=== PATIENT | female | born 1950 | race Caucasian/White ===

== ENCOUNTER 2018-02-24 09:18 | Outpatient (CLI) | payer MEDICARE ==
--- NOTE | 2018-02-24 10:17 | BD ---
BONE DENSITOMETRY USING DEXA: Date: 02/24/18 HISTORY: Postmenopausal screening for osteoporosis. FINDINGS: Lumbar Spine: BMD (g/cm2) L1 0.886 T-Score: -0.9 Z-Score: 0.7 L2 0.851 T-Score: -1.6 Z-Score: 0.2 L3 0.894 T-Score: -1.7 Z-Score: 0.1 L4 0.881 T-Score: -1.6 Z-Score: 0.3 L1-L4 0.877 T-Score: -1.5 Z-Score: 0.3 Femoral Neck: 0.631 T-Score: -2.0 Z-Score: -0.4 Total Femur: 0.730 T-Score: -1.7 Z-Score: -0.5 The 10 year fracture risk for a major osteoporotic fracture is 11% and for a hip fracture is 1.5%. IMPRESSION: Osteopenia. POS: [facility]
== END 2018-02-24 09:19 | disposition home or self-care (01) ==
LOC: BICMAMMO 09:18
PROVIDERS: ATTEND Internal Medicine Geriatric Medicine
DX: Z13.820 Encounter for screening for osteoporosis (principal); Z00.00 Encounter for general adult medical examination without abnormal findings; M85.89 Other specified disorders of bone density and structure, multiple sites
CPT/HCPCS: 77063; 77067; 77080

== ENCOUNTER 2020-07-04 14:41 | Emergency (ER) | payer MEDICARE ==
[2020-07-04 15:34] LABS: #Lymphocytes 1.5 thou/uL (1.20-3.40); #Monocytes 0.5 thou/uL (0.11-0.59); #Neutrophils 2.7 thou/uL (1.40-6.50); %Basophils 0.8 % (0.0-1.0); %Eosinophils 0.6 % (0.0-10.0); %Lymphocytes 31.2 % (21.0-51.0); %Monocytes 11.1 % (0.0-10.0); %Neutrophils 56.3 % (42.0-75.0); Hemoglobin 13.1 g/dL (12.0-16.0); Mean Corpuscular HGB CONC 32.5 g/dL (32.0-36.0); Mean Corpuscular Hemoglobin 29.5 pg (27.0-31.0); Mean Corpuscular Volume 90.8 fL (78.0-98.0); Mean Platelet Volume 6.9 fL (7.4-10.4); Platelet Count 215 thou/uL (130-400); RBC Distribution Width 12.9 % (11.5-14.5); Red Blood Cell (RBC) Count 4.44 mill/uL (4.20-5.40); White Blood Cell (WBC) Count 4.8 thou/uL (4.8-10.8)
[2020-07-04 15:49] LABS: ALT (SGPT) 14 U/L (8-55); AST (SGOT) 21 U/L (5-34); Albumin 3.8 g/dL (3.4-4.8); Alkaline Phosphatase 81 U/L (40-110); Anion Gap 13 mmol/L (10-20); BUN (Urea Nitrogen) 14 mg/dL (9.8-20.1); Bilirubin, Total 0.2 mg/dL (0.2-1.2); Calc. Creatinine Clearance 0 mL/min (70-130); Calcium 8.7 mg/dL (7.8-10.44); Carbon Dioxide 24 mmol/L (23-31); Chloride 104 mmol/L (98-107); Globulin 3.1 g/dL (2.4-3.5); Glucose 141 mg/dL (80-115); Lipase 39 U/L (8-78); Potassium 3.6 mmol/L (3.5-5.1); Protein, Total 6.9 g/dL (5.8-8.1); Sodium 137 mmol/L (136-145)
== END 2020-07-04 16:51 | disposition home or self-care (01) ==
LOC: ERS 14:41
DX: R50.9 Fever, unspecified (principal); R05 Cough; R10.13 Epigastric pain; Z20.822 Contact with and (suspected) exposure to COVID-19
CPT/HCPCS: 71045; 80053; 83690; 84484; 85025; 93005

== ENCOUNTER 2020-07-17 11:00 | Observation (INO) | payer MEDICARE ==
--- NOTE | 2020-07-17 11:35 | CT ---
EXAM: CT brain without contrast HISTORY: Headache and difficulty finding words COMPARISON: 04/18/2010 TECHNIQUE: Multiple contiguous axial images were obtained and a CT of the brain without contrast. FINDINGS: There are subtle scattered hypodensities in the subcortical and periventricular white matte r consistent with small vessel ischemic disease. There is no evidence of hydrocephalus, intracranial hemorrhage, or extra-axial fluid collection. The calvarium and overlying soft tissues are unremarkable. The visualized paranasal sinuses and masto id air cells are well aerated. IMPRESSION: No evidence of acute intracranial abnormality Dr. Galvez notified of findings at 11:32 AM on 07/17/2020
[2020-07-17 11:39] LABS: #Eosinphils 0.1 thou/uL (0.0-0.7); #Lymphocytes 2.4 thou/uL (1.20-3.40); #Monocytes 0.6 thou/uL (0.11-0.59); #Neutrophils 4.2 thou/uL (1.40-6.50); %Basophils 0.6 % (0.0-1.0); %Eosinophils 1.9 % (0.0-10.0); %Lymphocytes 32.4 % (21.0-51.0); %Neutrophils 57.1 % (42.0-75.0); Hemoglobin 12.7 g/dL (12.0-16.0); Mean Corpuscular HGB CONC 31.9 g/dL (32.0-36.0); Mean Corpuscular Hemoglobin 29.6 pg (27.0-31.0); Mean Corpuscular Volume 92.6 fL (78.0-98.0); Mean Platelet Volume 6.9 fL (7.4-10.4); Platelet Count 322 thou/uL (130-400); RBC Distribution Width 12.8 % (11.5-14.5); Red Blood Cell (RBC) Count 4.31 mill/uL (4.20-5.40); White Blood Cell (WBC) Count 7.3 thou/uL (4.8-10.8)
[2020-07-17 11:58] LABS: ALT (SGPT) 23 U/L (8-55); AST (SGOT) 24 U/L (5-34); Albumin 4.1 g/dL (3.4-4.8); Alkaline Phosphatase 94 U/L (40-110); Anion Gap 14 mmol/L (10-20); BUN (Urea Nitrogen) 17 mg/dL (9.8-20.1); Bilirubin, Total 0.3 mg/dL (0.2-1.2); Calc. Creatinine Clearance 0 mL/min (70-130); Calcium 9.4 mg/dL (7.8-10.44); Carbon Dioxide 27 mmol/L (23-31); Chloride 106 mmol/L (98-107); Globulin 3.2 g/dL (2.4-3.5); Glucose 102 mg/dL (80-115); Potassium 3.8 mmol/L (3.5-5.1); Protein, Total 7.3 g/dL (5.8-8.1); Sodium 143 mmol/L (136-145)
[2020-07-17 12:12] LABS: INR-International Normal Ratio 0.9; PTT 29.2 sec (22.9-36.1); Prothrombin Time 12.7 sec (12.0-14.7)
[2020-07-17] MEDS ORDERED: Aspirin Chewable 81 MG TAB ONE (12:18)
--- NOTE | 2020-07-17 12:56 | PDOC.FPRHP ---
- History of Present Illness Chief Complaint: Speech difficulty History of Present Illness: 69yo F presented to the ED for concern of stroke like symptoms. Pt stated that she woke up in her normal condition with no symptoms. Around 08 she started to notice blurring in her vision that made her unable to read the TV or her phone. She states she noticed she could read single words but could not understand what they meant. She then developed a mild dull frontal headache. Following this she developed difficulty speaking. She noted that she could not say the words she meant to say "the words just would not come out". was there and witnessed and stated that she was not slurred but could not complete her [place] and words did not necessarily make sense. She states that all of this resolved around 103. Her headache had mostly resolved aside from a heaviness feeling in her head. Denies any similar episodes in the past. Of note around Jun 27 pt had a few days of flu like sx with loss of smell and was concerned for COVID but was never tested. She states those symptoms have since resolved. Denies any history of elevated cholesterol, abnormal heart rhythm, smoking. Has been told her has high blood pressure at clinic but is always normal at home. - Allergies/Adverse Reactions Allergies Allergy/AdvReac Type Severity Reaction Status Date / Time No Known Allergies Allergy Unverified 07/17/20 14:40 - Home Medications Medication Instructions Recorded Confirmed Type Albuterol Sulfate [Proventil Hfa] 2 puff INH Q6H PRN 07/17/20 07/17/20 History Ascorbic Acid [Vitamin C] 1 tab PO TID 07/17/20 07/17/20 History Magnesium Citrate 400 mg PO DAILY 07/17/20 07/17/20 History [place]-3 Fatty Acids/Fish Oil 1 capsule PO DAILY 07/17/20 07/17/20 History [[place] 3 Fish Oil Softgel] Pot Bicarb/Sod Bicarb/Cit Ac 1 tab PO PRN PRN 07/17/20 07/17/20 History [Cheryl-Albert Gold Tab Eff] Vitamin D3/Vitamin K2 (Mk4) [K2 5,000 units PO DAILY 07/17/20 07/17/20 History Plus D3 Tablet] - History PMHx: Asthma, Sliding hiatal hernia, Esophageal spasms, GERD PSHx: Left cataract removal FHx: Father of [place] at 78; [place] of CHF, afib 92; CVA in paternal grandmother Social: Denies smoking or drugs. Rare glass of red wine - Vital signs BP: 197/97, Pulse: 85, Resp: 17, Temp: 98.5 (Oral), Pain: 0, O2 sat: 98 on (Room Air), Time: 07/17/2020 11:01. BP: 204/88, MAP: 126, Pulse: 84, Resp: 18, Pain: 0, O2 sat: 98 on (Room Air), Time: 07/17/2020 11:15. BP: 177/91, Pulse: 79, Resp: 18, Pain: 0, O2 sat: 100 on (Room Air), Time: 07/17/2020 11:52. 70 kg - Physical Exam Constitutional: NAD, awake, alert and oriented, well developed HEENT: PERRLA, EOMI, grossly normal vision, grossly normal hearing, MMM -HEENT: Mildly cryptic tongue Neck: supple, FROM, no bruits Heart: RRR, normal S1/S2, no murmurs/rubs/gallops Lungs: CTAB, no respiratory distress, good air movement Abdomen: soft, non-tender, bowel sounds present Musculoskeletal: normal structure, normal tone, ROM grossly normal Neurological: no focal deficit, CN II-XII intact, normal sensation, DTRs 2+ -Neurological: Full neurologic exam normal with no appreciable deficits Skin: no rash/lesions, capillary refill <2 seconds Heme/Lymphatic: no unusual bruising or bleeding, no purpura, no petechia Psychiatric: normal mood and affect, good judgment and insight, intact recent and remote memory FMR H&P: Results - Labs Result Diagrams: 07/18/20 05:21 07/18/20 05:21 Lab results: WBC 7.3 thou/uL (4.8-10.8) 07/17/20 11:08 Hgb 12.7 g/dL (12.0-16.0) 07/17/20 11:08 Hct 39.9 % (36.0-47.0) 07/17/20 11:08 MCV 92.6 fL (78.0-98.0) 07/17/20 11:08 Plt Count 322 thou/uL (130-400) 07/17/20 11:08 Neutrophils % 57.1 % (42.0-75.0) 07/17/20 11:08 Sodium 143 mmol/L (136-145) 07/17/20 11:08 Potassium 3.8 mmol/L (3.5-5.1) 07/17/20 11:08 Chloride 106 mmol/L (98-107) 07/17/20 11:08 Carbon Dioxide 27 mmol/L (23-31) 07/17/20 11:08 BUN 17 mg/dL (9.8-20.1) 07/17/20 11:08 Creatinine 0.82 mg/dL (0.6-1.1) 07/17/20 11:08 Glucose 102 mg/dL (80-115) 07/17/20 11:08 Calcium 9.4 mg/dL (7.8-10.44) 07/17/20 11:08 Total Bilirubin 0.3 mg/dL (0.2-1.2) 07/17/20 11:08 AST 24 U/L (5-34) 07/17/20 11:08 ALT 23 U/L (8-55) 07/17/20 11:08 Alkaline Phosphatase 94 U/L (40-110) 07/17/20 11:08 Serum Total Protein 7.3 g/dL (5.8-8.1) 07/17/20 11:08 Albumin 4.1 g/dL (3.4-4.8) 07/17/20 11:08 - EKG Interpretation EKG: NSR, no evidence for ischemia FMR H&P: A/P - Plan TIA/CVA r/o - Based on History and lack of findings, c/w TIA - Risk stratifying labs - Brain MRI - ECHO - CTA head/neck - NIH scores, Neurochecks - Permissive HTN - Start DAPT HTN - White coat HTN per patient - Continue to monitor Asthma, mild intermittent - Albuterol inhaler PRN Sliding Hiatal Hernia - Aware Esophageal spasms - aware Diet: HH Code: Full GI ppx: none PCP: none, CC Dispo: Admit Stroke Observation, eLOS likely < [address] Aguilar attending and Dr. Oconnell. FMR H&P: Upper Level - Pertinent history S: 69yo previously healthy female with approximately 2 hour history of expressive aphasia, vision changes, and headache. This occurred this morning and resolved by time of arrival. Pt's only risk factors include age, questionable hx of HTN. Pt does not follow with regular PCP and follows functional medicine regimen therefore is unsure of other risk factors. She takes not daily medications and is routinely active. She has never had symptoms like this before. - Pertinent findings O: GEN: NAD, well developed HEENT: PERRLA, EOMI, cryptic red tongue HEART: RRR, no murmur LUNGS: CTAB ABD: Soft, non tender EXT: FROM, no cyanosis or edema NEURO: CN 2-12 intact, normal extremity strength and sensation, A&Ox3, normal cognition and memory SKIN: No rash, lesions A/P: Likely TIA vs CVA - CT non con: negative - Ordered CTA head and neck, Echo - Risk strat labs: A1c, lipids - NIH scales w/ neuro checks - DAPT due to ABCD2 of 5 - Permissive HTN x48hr Dispo: Admit to inpt stroke - Plan Date/Time: 07/17/20 1255 ISean DO, have evaluated this patient and agree with findings/plan as outlined by internal communications manager resident. Pertinent changes/additions are listed here. Addendum - Attending - Attending Attestation Date/Time: 07/18/20 1155 I personally evaluated the patient and discussed the management with Dr. Bedolla/Kourtney. I agree with the History, Examination, Assessment and Plan documented above with any addition or exceptions noted below. seen and evaluated on date of admission.
[2020-07-17] MEDS ORDERED: Clopidogrel Bisulfate 300 MG TAB PO SCH ×2 (13:45→19:15)
[2020-07-17] MEDS ORDERED: Iopamidol-370 76% 500 ML 1 ML ONE (13:54)
[2020-07-17] MEDS ORDERED: hydrALAZINE 20 MG/ML VIAL SLOW IVP PRN (14:15)
[2020-07-17] MEDS ORDERED: Senokot S 8.6-50 MG TAB PO PRN (15:38)
[2020-07-17] MEDS ORDERED: Acetaminophen 325 MG TAB PO PRN (15:38)
[2020-07-17] MEDS ORDERED: Famotidine 20 MG TAB PO PRN (15:38)
[2020-07-17] MEDS ORDERED: Ondansetron ODT 4 MG TAB PO PRN (15:38)
[2020-07-17] MEDS ORDERED: Calcium Carbonate 500 MG ChewTAB PO PRN (15:38)
[2020-07-17] MEDS ORDERED: Bisacodyl 5 MG TAB PO PRN (15:38)
[2020-07-17] MEDS ORDERED: Bisacodyl 10 MG SUPP PR PRN (15:38)
[2020-07-17 15:57] VITALS: BMI 24.0
[2020-07-17] MEDS ORDERED: Albuterol 200 PUFF (6.7GM INHALER) INH PRN (17:59)
--- NOTE | 2020-07-17 18:14 | CT ---
CTA of the head with IV contrast and 3-D reformatted imaging. CTA of the neck with IV contrast and 3-D reformatted imaging. INDICATION: TIA; trouble finding words with headache and heaviness in the head COMPARISON: CT the brain without contrast dated every 2020 at 11:22 AM FINDINGS: CTA OF THE HEAD WITH CONTRAST: CTA OF THE BRAIN: Right ICA: Patent. Right MCA: Patent. Right JUAN: Patent. ACOM: Patent. Left ICA: Patent. Left MCA: Patent. Left JUAN: Patent. PCOMs: Patent. Vertebral arteries: Patent. Basilar Artery: Patent. operations welder: Patent. Incidentals: Left [place] lenses been replaced. There is a mucous retention cyst within the inferior aspect of the left maxillary sinus. No suspicious intracranial enhancement is evident. CTA OF THE NECK WITH CONTRAST: Right CCA: Patent. Right ICA: Patent. Right Subclavian: Patent. Right Vertebral Artery: Patent. Left CCA: Patent. Left ICA: Patent. Left Subclavian: Patent. Left Vertebral Artery: Patent. Aerodigestive tract: Clear. Parotids/Submandibular/Thyroid glands: Normal. Lymph nodes: No pathologically enlarged lymph nodes. Lung Apices: There are scattered areas of tree-in-bud nodular opacity within both upper lobes. Bones: There is scattered degenerative and osteoarthritic change present. Incidentals: None. IMPRESSION: 1. No hemodynamically significant stenosis, occlusion or aneurysmal formation. 2. Tree-in-bud type nodular opacities within both upper lobes can be seen with a respiratory bronchio litis. Recommend correlation with the clinical exam. Follow-up CT the thorax without contrast in 6-8 weeks to document stability versus resolution is recommended.
[2020-07-18 05:30] LABS: #Basophils 0.1 thou/uL (0.0-0.2); #Eosinphils 0.2 thou/uL (0.0-0.7); #Lymphocytes 2.2 thou/uL (1.20-3.40); #Monocytes 0.6 thou/uL (0.11-0.59); #Neutrophils 3.5 thou/uL (1.40-6.50); %Basophils 1.1 % (0.0-1.0); %Eosinophils 2.8 % (0.0-10.0); %Monocytes 9.7 % (0.0-10.0); %Neutrophils 52.5 % (42.0-75.0); Hemoglobin 12.4 g/dL (12.0-16.0); Mean Corpuscular HGB CONC 32.4 g/dL (32.0-36.0); Mean Corpuscular Hemoglobin 29.3 pg (27.0-31.0); Mean Corpuscular Volume 90.5 fL (78.0-98.0); Mean Platelet Volume 6.5 fL (7.4-10.4); Platelet Count 284 thou/uL (130-400); RBC Distribution Width 12.9 % (11.5-14.5); Red Blood Cell (RBC) Count 4.24 mill/uL (4.20-5.40); White Blood Cell (WBC) Count 6.6 thou/uL (4.8-10.8)
[2020-07-18 05:54] LABS: Anion Gap 11 mmol/L (10-20); BUN (Urea Nitrogen) 14 mg/dL (9.8-20.1); Calc. Creatinine Clearance 75 mL/min (70-130); Calcium 8.9 mg/dL (7.8-10.44); Carbon Dioxide 27 mmol/L (23-31); Cardiac Risk 3.4 (Less than 4.5); Chloride 109 mmol/L (98-107); Cholesterol 228 mg/dl (< 200 Desired); Glucose 88 mg/dL (80-115); HDL Cholesterol 67 mg/dL (>60 Neg Risk); LDL Cholesterol, Calculated 148 mg/dL; Magnesium 2.2 mg/dL (1.6-2.6); Potassium 4.1 mmol/L (3.5-5.1); Sodium 143 mmol/L (136-145); Triglycerides 64 mg/dL (Less than 150)
[2020-07-18 05:57] LABS: Hemoglobin A1c 5.6 % (4.0-6.0)
[2020-07-18 06:19] LABS: Thyroid Stimulating Hormone 1.9782 uIU/mL (0.35-4.94)
--- NOTE | 2020-07-18 06:47 | PDOC.FM ---
- Subjective Subjective: No acute events overnight. Notes a continued mild frontal headache. No recurrence of word finding difficulties or vision changes. - Objective Vital Signs & Weight: Vital Signs (12 hours) Temp Pulse Resp BP Pulse Ox 07/18/20 04:00 97.8 F 73 20 130/60 96 07/18/20 00:00 98.1 F 75 16 136/64 95 07/17/20 20:14 97.8 F 73 17 172/75 H 97 Weight Weight 69.626 kg I&O: 07/16/20 07/17/20 07/18/20 06:59 06:59 06:59 Intake Total 600 Balance 600 Result Diagrams: 07/18/20 05:21 07/18/20 05:21 Phys Exam - Physical Examination Constitutional: NAD HEENT: PERRLA, moist MMs Neck: full ROM Respiratory: no wheezing, clear to auscultation bilateral Cardiovascular: RRR, no significant murmur Gastrointestinal: soft Musculoskeletal: no edema Neurological: non-focal, normal sensation, moves all 4 limbs speech clear and coherent Psychiatric: normal affect, A&O x 3 Skin: no rash Dx/Plan - Plan Plan: Likely TIA vs CVA - CT non con: negative - CTA head and neck: no significant stenosis - Echo pending - MRI brain pending - Risk strat labs: hypercholesterolemia - Recommend high intensity statin - NIH scales w/ neuro checks - Daily asa - Permissive HTN x48hr (07/19 @ 0800) Tree-in-bud opacities - Incidental findings in bilateral upper lung castaneda on CTA head - In non dependent regions of the lung and without acute presentation of pulmonary sx this is most likely due to old infectious process - Recommend f/u in 6-8 weeks Dispo: Inpatient stroke for CVA r/o. History most consistent with TIA. MRI today. Etiology still undetermined. Pt refuses statin therapy. Addendum - Attending - Attending Attestation Date/Time: 07/18/20 6015 I personally evaluated the patient and discussed the management with Dr. Oconnell. I agree with the History, Examination, Assessment and Plan documented above with any addition or exceptions noted below. Refusing statin and antihypertensives. MRI pending. If negative can d/c home. TTE taken but can f/u on read after d/c.
[2020-07-18] MEDS ORDERED: Enoxaparin Sodium 30 MG/0.3 ML SYRINGE SC SCH (09:00)
[2020-07-18] MEDS ORDERED: Clopidogrel Bisulfate 75 MG TAB PO SCH (09:00)
[2020-07-18] MEDS ORDERED: Enoxaparin Sodium 40 MG/0.4 ML SYRINGE SC SCH (09:00)
[2020-07-18] MEDS ORDERED: Ibuprofen 200 MG TAB PO PRN (09:38)
[2020-07-18 12:26] VITALS: BP 137/65; TEMP 98.1
--- NOTE | 2020-07-18 14:10 | MRI ---
MRI BRAIN NONCONTRAST: DATE: 07/18/2020 HISTORY: 69-year-old female with TIA: Acute dysarthria, visual deficit, and headache FINDINGS: There is no obstructive hydrocephalus. There is no midline shift or any other evidence of mass effect . There is no extra-axial fluid collection. There are mild chronic ischemic white matter changes due to microvascular atherosclerosis. There is otherwise no major intra-axial signal abnormality, rec ent hemorrhage, or restricted diffusion. IMPRESSION: 1) mild chronic ischemic white matter changes. 2) otherwise negative
--- NOTE | 2020-07-20 11:50 | DIS ---
DATE OF ADMISSION: 07/17/2020 DATE OF DISCHARGE: 07/18/2020 ADMITTING ATTENDING: Vinny Aguilar MD DISCHARGE ATTENDING: Vinny Aguilar MD RESIDENT: Sean Oconnell DO CONSULTS: None. PROCEDURES: None. IMAGIN. Brain CT on 07/17/2020, impression, no acute evidence of intracranial abnormalities. 2. CTA head and neck on 07/17/2020, impression, no hemodynamically significant stenosis, occlusion, or aneurysm. Tree-in-bud type nodular opacities in both upper lobes. Recommend followup in 6-8 weeks. 3. Brain MRI on 07/18/2020, impression, mild chronic ischemic white matter changes, otherwise negative. 4. Echocardiogram on 07/18/2020, impression, EF of 60% to 65% with 2/3 diastolic dysfunction, mildly dilated left atrium. Mild mitral tricuspid and pulmonic regurgitation. Aortic valve sclerosis without stenosis. PROCEDURES: None. PRIMARY DIAGNOSIS: Transient ischemic attack. SECONDARY DIAGNOSES: Hyperlipidemia and hypertension. DISCHARGE MEDICATIONS: 1. Aspirin 81 mg daily. 2. Proventil 2 puffs q.4 hours p.r.n. HISTORY OF PRESENT ILLNESS AND HOSPITAL COURSE: A 69-year-old otherwise healthy female presents to the emergency department with concern of stroke-like symptoms. The patient developed approximately 2 hours of expressive aphasia, difficulty reading. These symptoms were witnessed and confirmed by . They resolved by the time the patient had presented to the emergency department. The patient was admitted to the stroke floor for TIA versus CVA workup. In the emergency department, she had a negative noncontrast head CT. The patient's NIH scores were initially [address] throughout her stay. Following day, the patient had an echocardiogram, which showed no cardiomyopathy or source of thrombus. She also had an MRI that showed chronic small-vessel ischemic changes, but no acute CVA. The patient's risk stratification labs resulted, showing that she has hypercholesterolemia with normal A1c and TSH. I discussed these findings with the patient, who adheres to functional medicine practices and refused to start statin therapy, although indicated based on the patient's TIA and ASCVD risk scores. The patient agreed to establish with PCP to further discuss preventative strategies to reduce her risk of recurrence of TIA or progression to CVA or other MACE events. The patient was agreeable to continuing the daily baby aspirin, which was sent into her pharmacy prior to discharge. The patient was informed about tree-in-bud findings on CTA head and neck and reported that she had numerous pneumonias as a child and these findings were noted on previous chest imaging in the past and was always told that they were stable and nonprogressing. DISCHARGE INSTRUCTIONS: Location, home. Diet, heart healthy. Activity, as tolerated. FOLLOWUP: With PCP within 7 days. Job ID: [id number] MTDD
--- NOTE | 2020-07-22 09:26 | CT ---
"PRELIMINARY REPORT" CTA of the head with IV contrast and 3-D reformatted imaging. CTA of the neck with IV contrast and 3-D reformatted imaging. INDICATION: TIA; trouble finding words with headache and heaviness in the head COMPARISON: CT the brain without contrast dated every 2020 at 11:22 AM FINDINGS: CTA OF THE HEAD WITH CONTRAST: CTA OF THE BRAIN: Right ICA: Patent. Right MCA: Patent. Right JUAN: Patent. ACOM: Patent. Left ICA: Patent. Left MCA: Patent. Left JUAN: Patent. PCOMs: Patent. Vertebral arteries: Patent. Basilar Artery: Patent. media center specialist: Patent. Incidentals: Left [place] lenses been replaced. There is a mucous retention cyst within the inferior aspect of the left maxillary sinus. No suspicious intracranial enhancement is evident. CTA OF THE NECK WITH CONTRAST: Right CCA: Patent. Right ICA: Patent. Right Subclavian: Patent. Right Vertebral Artery: Patent. Left CCA: Patent. Left ICA: Patent. Left Subclavian: Patent. Left Vertebral Artery: Patent. Aerodigestive tract: Clear. Parotids/Submandibular/Thyroid glands: Normal. Lymph nodes: No pathologically enlarged lymph nodes. Lung Apices: There are scattered areas of tree-in-bud nodular opacity within both upper lobes. Bones: There is scattered degenerative and osteoarthritic change present. Incidentals: None. IMPRESSION: 1. No hemodynamically significant stenosis, occlusion or aneurysmal formation. 2. Tree-in-bud type nodular opacities within both upper lobes can be seen with a respiratory bronchio litis. Recommend correlation with the clinical exam. Follow-up CT the thorax without contrast in 6-8 weeks to document stability versus resolution is recommended. Transcribed Date/Time: 07/22/2020 9:25 AM
== END 2020-07-18 16:20 | disposition home or self-care (01) ==
LOC: ERS 11:00 → MERGE 12:58 → 2SE 12:58
PROVIDERS: ADMIT Family Medicine; ATTEND Family Medicine
DX: G45.9 Transient cerebral ischemic attack, unspecified (principal); E78.5 Hyperlipidemia, unspecified; I10 Essential (primary) hypertension; J45.20 Mild intermittent asthma, uncomplicated; K22.4 Dyskinesia of esophagus; K44.9 Diaphragmatic hernia without obstruction or gangrene; K21.9 Gastro-esophageal reflux disease without esophagitis; R91.8 Other nonspecific abnormal finding of lung field; I08.1 Rheumatic disorders of both mitral and tricuspid valves; I35.8 Other nonrheumatic aortic valve disorders; Z79.899 Other long term (current) drug therapy
CPT/HCPCS: 36415; 36416; 70450; 70496; 70498; 70551; 80048; 80053; 80061; 82607; 82746; 83036; 83735; 84443; 84484; 85025; 85610; 85730; 93005; 93306; 96372; G0378; J1650; Q9967

== ENCOUNTER 2020-09-01 10:38 | Outpatient (CLI) | payer MEDICARE | END 2020-09-01 10:39 | disposition home or self-care (01) | LOC: BICMAMMO 10:38 | PROVIDERS: ATTEND Family Medicine | DX: Z12.31 Encounter for screening mammogram for malignant neoplasm of breast (principal) | CPT/HCPCS: 77063; 77067 ==

== ENCOUNTER 2021-02-05 07:29 | Outpatient (CLI) | payer MEDICARE | END 2021-02-05 07:30 | disposition home or self-care (01) | LOC: BICCT 07:29 | PROVIDERS: ATTEND Family Medicine | DX: R91.8 Other nonspecific abnormal finding of lung field (principal); J43.9 Emphysema, unspecified; K44.9 Diaphragmatic hernia without obstruction or gangrene | CPT/HCPCS: 71275; 82565 ==

== ENCOUNTER 2021-12-21 10:24 | Outpatient (CLI) | payer MEDICARE | END 2021-12-21 10:25 | disposition home or self-care (01) | LOC: BICMAMMO 10:24 | PROVIDERS: ATTEND Family Medicine | DX: M85.9 Disorder of bone density and structure, unspecified (principal); Z78.0 Asymptomatic menopausal state | CPT/HCPCS: 77080 ==

== ENCOUNTER 2025-03-29 09:34 | Outpatient (CLI) | payer MEDICARE | END 2025-03-29 09:35 | disposition home or self-care (01) | LOC: BICMAMMO 09:34 | PROVIDERS: ATTEND Family Medicine | DX: Z13.820 Encounter for screening for osteoporosis (principal); M85.89 Other specified disorders of bone density and structure, multiple sites; M81.0 Age-related osteoporosis without current pathological fracture | CPT/HCPCS: 77080 ==